=== PATIENT | male | born 1985 | race Two or more races ===

== ENCOUNTER 2021-02-13 19:36 | Emergency (ER) | payer SELFPAY ==
[~2021-02-13] VITALS: Ht 167.6 cm; Wt 83.9 kg
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
[2021-02-13] MEDS ORDERED: Oxymetazoline 0.05% Na Spray 30ml NASAL ONE ×2 (19:48→20:00)
[2021-02-13 19:50] VITALS: BP 116/73
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
--- NOTE | 2021-02-13 20:19 | NUR ---
ED Nurse Note: ekg collected, blood specimens sent to lab
[2021-02-13 20:31] LABS: EOSINOPHILS % (AUTO) 0.4 % (0.0-3.0); HEMATOCRIT 43.9 % (42.0-52.0); HEMOGLOBIN 14.4 G/DL (14.2-18.0); LYMPHOCYTES % (AUTO) 29.8 % (20.0-45.0); MEAN CORPUSCULAR VOLUME 89 FL (80-99); MONOCYTES % (AUTO) 6.2 % (1.0-10.0); NEUTROPHILS % (AUTO) 62.6 % (45.0-75.0); PLATELET COUNT 543 K/UL (150-450); RED BLOOD COUNT 4.92 M/UL (4.70-6.10); RED CELL DISTRIBUTION WIDTH 14.1 % (11.6-14.8); WHITE BLOOD COUNT 15.4 K/UL (4.8-10.8)
[2021-02-13 20:41] LABS: ANION GAP 20 mmol/L (5-15); BLOOD UREA NITROGEN 12 mg/dL (7-18); CALCIUM 9.7 MG/DL (8.5-10.1); CARBON DIOXIDE 18 MMOL/L (21-32); CHLORIDE 102 MMOL/L (98-107); CREATININE 1.2 MG/DL (0.55-1.30); POTASSIUM 3.4 MMOL/L (3.5-5.1); SODIUM 140 MMOL/L (136-145)
== END 2021-02-13 21:14 | disposition home or self-care (01) ==
LOC: EMR 19:58
DX: R04.0 Epistaxis (principal); R00.0 Tachycardia, unspecified
CPT/HCPCS: 36415; 80048; 84484; 85025; 85610; 93005; 96360; 99284; J7030